=== PATIENT | male | born 1980 ===

== ENCOUNTER 2016-07-04 09:07 | Emergency (ER) | payer OTHER ==
[2016-07-04 09:51] VITALS: BP 145/100
--- NOTE | 2016-07-04 10:39 | UC ---
Neck Pain HPI - HPI Summary HPI Summary: SUDDEN ONSET OF LEFT SIDED POSTERIOR NECK PAIN AFTER SNEEZING 5 DAYS AGO. PT ALSO HAS A PHYSICALLY DEMANDING JOB AND DOES A LOT OF HEAVY LIFTING AND MOVING. PAIN IS KEEPING HIM UP AT NIGHT. HAS SOME RADIATION OF THE PAIN DOWN HIS LEFT ARM. DENIES ANY CHEST PAIN, SOB, NAUSEA OR SWEATS. - History of Current Complaint Chief Complaint: UCGeneralIllness Stated Complaint: NECK COMPLAINT Time Seen by Provider: 07/04/16 10:17 Hx Obtained From: Patient Onset/Duration Of Injury/Symptoms: Days Mechanism Of Injury: No Known Trauma Timing: Constant Onset/Duration: Sudden Onset Severity: Moderate Pain Intensity: 8 Pain Scale Used: 0-10 Numeric Location: Discrete At: - LEFT POSTERIOR NECK Character: Sharp, Aching Aggravating Factors: Movement Alleviating Factors: Nothing Associated Signs & Symptoms: Positive: Negative - Allergies/Home Medications Allergies/Adverse Reactions: Allergies Allergy/AdvReac Type Severity Reaction Status Date / Time No Known Allergies Allergy Verified 07/04/16 09:44 Home Medications: Home Medications Amphetamine-Dextroamphetamine [Adderall 30 mg-] 30 mg PO DAILY 07/04/16 [ History Confirmed 07/04/16] Ibuprofen TAB* [Motrin TAB* 600 MG] 600 mg PO PRN 07/04/16 [History] Omeprazole CAP* [Prilosec CAP* 20 MG] 20 mg PO DAILY 07/04/16 [History Confirmed 07/04/16] PMH/Surg Hx/FS Hx/Imm Hx Previously Healthy: Yes - Surgical History Surgical History: None - Family History Known Family History: Positive: Hypertension - Social History Alcohol Use: None Substance Use Type: None Smoking Status (MU): Never Smoked Tobacco Review Of Systems Constitutional: Positive: Negative Skin: Positive: Negative Respiratory: Positive: Negative Cardiovascular: Positive: Negative Gastrointestinal: Positive: Negative Musculoskeletal: Positive: Arthralgia, Myalgia Neurological: Positive: Negative All Other Systems Reviewed And Are Negative: Yes Physical Exam Triage Information Reviewed: Yes Appearance: Well-Appearing, No Pain Distress, Well-Nourished Vital Signs: Initial Vital Signs Temp 98.2 F 07/04/16 09:45 Pulse 92 07/04/16 09:45 Resp 18 07/04/16 09:45 BP 145/100 07/04/16 09:45 Pulse Ox 97 01/27/17 09:45 Vital Signs Reviewed: Yes Eyes: Positive: Conjunctiva Clear ENT: Positive: Hearing grossly normal Neck: Positive: Supple, Nontender, No Lymphadenopathy, Other: - SPURLING TEST NEGATIVE Respiratory: Positive: No respiratory distress, No accessory muscle use Cardiovascular: Positive: Pulses Normal Abdomen Description: Positive: Soft Musculoskeletal: Positive: ROM Intact, No Edema Neurological: Positive: Alert Psychological: Positive: Age Appropriate Behavior Skin: Negative: rashes Neck Pain Course/Dx - Differential Dx/Diagnosis Differential Dx/HQI/PQRI: Arthritis, Other - NERVE IMPINGEMENT Provider Diagnoses: ACUTE CERVICAL STRAIN Discharge - Discharge Plan Condition: Stable Disposition: HOME Prescriptions: Cyclobenzaprine TAB* [Flexeril TAB*] 10 mg PO BID PRN #30 tab PRN Reason: Pain Naproxen [Naproxen EC] 500 mg PO BID PRN #30 tab PRN Reason: Pain Patient Education Materials: Cervical Strain (ED) Referrals: Cate Briggs MD [Medical Doctor] - Additional Instructions: REST, HEAT, STRETCH. REFERRAL FOR PT PROVIDED. MUSCLE RELAXER AND ANTI-INFLAMMATORY GIVEN FOR SYMPTOM CONTROL. SEEK FOLLOW-UP IF NOT IMPROVING EXPECTED.
== END 2016-07-04 10:53 | disposition home or self-care (01) ==
LOC: UCEAST 09:07
DX: S16.1XXA Strain of muscle, fascia and tendon at neck level, initial encounter (principal); X50.9XXA Other and unspecified overexertion or strenuous movements or postures, initial encounter; Y93.89 Activity, other specified; Y92.9 Unspecified place or not applicable
CPT/HCPCS: 99212; G0463